=== PATIENT | female | born 1950 | race Caucasian/White ===

== ENCOUNTER 2017-09-26 09:19 | Emergency (ER) | payer OTHER ==
[~2017-09-26] VITALS: Ht 165.1 cm; Wt 117.7 kg
[2017-09-26 09:48] LABS: BASOPHIL (%) 0.9 % (0-1); BASOPHIL COUNT 0.1 K/uL (0-0.1); EOSINOPHIL (%) 3.4 % (0-5); EOSINOPHIL COUNT 0.3 K/uL (0-0.3); HEMATOCRIT 40.6 % (36.0-46.0); HEMOGLOBIN 13.6 G/DL (11.9-15.5); IMMATURE GRANULOCYTE (%) 0.1 % (0.0-0.7); LYMPHOCYTE (%) 30.8 % (15-42); LYMPHOCYTE COUNT 2.5 K/uL (1.0-2.8); MCHC 33.5 G/DL (30.0-36.0); MCV 86.6 FL (83-99); MONOCYTE (%) 9.1 % (3-12); MONOCYTE COUNT 0.7 K/uL (0-0.8); NEUTROPHIL (%) 55.7 % (45-76); NEUTROPHIL COUNT 4.6 K/uL (1.8-6.4); PLATELET COUNT 295 K/uL (156-360); RBC DIS.WIDTH-CV 12.6 % (11.8-14.6); RBC DIS.WIDTH-SD 39.8 % (39-53); RED BLOOD COUNT 4.69 M/uL (3.80-5.20); WHITE BLOOD COUNT 8.2 K/uL (4.1-10.2)
[2017-09-26 09:59] LABS: ALBUMIN 4.2 g/dL (3.2-4.8); CHLORIDE 103 mEq/L (99-109); POTASSIUM 3.8 mEq/L (3.7-5.4); SODIUM 138 mEq/L (136-147)
[2017-09-26 10:02] LABS: GLUCOSE 120 mg/dL (70-99); TOTAL PROTEIN 7.3 g/dL (6.4-8.3)
[2017-09-26 10:04] LABS: TOTAL BILIRUBIN 0.4 mg/dL (0.0-1.0)
[2017-09-26 10:05] LABS: ALKALINE PHOSPHATASE 78 IU/L (3-129); CREATININE 0.7 mg/dL (0.6-1.3); GFR ESTIMATE (CALCULATED) > 59 mL/min/
[2017-09-26 10:06] LABS: PTT 28.8 SEC (25-37); UREA NITROGEN (BUN) 14 mg/dL (9-23)
[2017-09-26 10:07] LABS: AST (GOT) 20 IU/L (2-34)
[2017-09-26 10:08] LABS: ALT (GPT) 14 IU/L (3-49)
[2017-09-26 10:10] LABS: TROP-I INTERPRETATION NEGATIVE; TROPONIN-I < 0.01 ng/mL (0.0-0.30)
[2017-09-26 11:15] LABS: APPEARANCE SL.HAZY ((CLEAR)); BILIRUBIN NEGATIVE; BLOOD NEGATIVE; COLOR YELLOW ((YELLOW)); GLUCOSE (STRIP) NEGATIVE; KETONES 20; LEUKOCYTES NEGATIVE; NITRITE NEGATIVE; PROTEIN (STRIP) NEGATIVE; SPECIFIC GRAVITY 1.024 (1.000-1.030); UROBILINOGEN 0.2 MG/DL (0.2-1.0)
[2017-09-26 11:18] LABS: BACTERIA RARE /HPF; EPITHELIAL CELLS 1+ /HPF; MUCUS TRACE /LPF; UCUL ADDED? NO; WHITE BLOOD CELLS 0-5 /HPF (0-5)
[2017-09-26 13:05] VITALS: BP 113/81
== END 2017-09-26 13:05 | disposition home or self-care (01) ==
LOC: EME 09:19
PROVIDERS: Emergency Medicine
DX: S01.01XA Laceration without foreign body of scalp, initial encounter (principal); W18.30XA Fall on same level, unspecified, initial encounter; Y93.01 Activity, walking, marching and hiking; Y92.538 Other ambulatory health services establishments as the place of occurrence of the external cause; R55 Syncope and collapse; E86.0 Dehydration; Z23 Encounter for immunization; I45.10 Unspecified right bundle-branch block; I44.4 Left anterior fascicular block; R94.31 Abnormal electrocardiogram [ECG] [EKG]; Z95.2 Presence of prosthetic heart valve; Z90.49 Acquired absence of other specified parts of digestive tract
CPT/HCPCS: 70450; 71046; 80053; 81003; 83735; 84484; 85025; 85610; 85730; 93005; 99281; 99285; J7040

== ENCOUNTER 2017-10-05 07:58 | Observation (INO) | payer OTHER ==
[~2017-10-05] VITALS: Ht 166.4 cm; Wt 123.0 kg
[2017-10-05 09:04] LABS: HEMATOCRIT 39.4 % (36.0-46.0); HEMOGLOBIN 13.1 G/DL (11.9-15.5); MCH 28.7 PG (29.0-34.0); MCHC 33.2 G/DL (30.0-36.0); MCV 86.4 FL (83-99); PLATELET COUNT 268 K/uL (156-360); RBC DIS.WIDTH-CV 12.9 % (11.8-14.6); RBC DIS.WIDTH-SD 40.5 % (39-53); RED BLOOD COUNT 4.56 M/uL (3.80-5.20); WHITE BLOOD COUNT 5.6 K/uL (4.1-10.2)
[2017-10-05 09:13] LABS: PTT 29.9 SEC (25-37)
[2017-10-05 09:22] LABS: CHLORIDE 105 mEq/L (99-109); POTASSIUM 3.8 mEq/L (3.7-5.4); SODIUM 138 mEq/L (136-147)
[2017-10-05 09:24] LABS: GLUCOSE 95 mg/dL (70-99)
[2017-10-05 09:27] LABS: CREATININE 0.7 mg/dL (0.6-1.3); GFR ESTIMATE (CALCULATED) > 59 mL/min/
[2017-10-05 09:28] LABS: UREA NITROGEN (BUN) 10 mg/dL (9-23)
[2017-10-05 09:30] LABS: TROP-I INTERPRETATION NEGATIVE; TROPONIN-I < 0.01 ng/mL (0.0-0.30)
[2017-10-05] MEDS ORDERED: ASPIR 8181 M1 PO (09:57)
[2017-10-05] MEDS ORDERED: B-121000 MC2 PO (09:57)
[2017-10-05] MEDS ORDERED: CALTRATE 600 +1 EAC1 PO (09:57)
[2017-10-05] MEDS ORDERED: GUMMI BEAR MUL1 EACH PO (09:58)
[2017-10-05] MEDS ORDERED: VITAMIN D32000 UNI1 PO (09:58)
[2017-10-05 16:12] VITALS: BP 107/62
[2017-10-05 19:39] LABS: TROP-I INTERPRETATION NEGATIVE; TROPONIN-I 0.01 ng/mL (0.0-0.30)
[2017-10-05 19:55] VITALS: BP 122/59
[2017-10-06 00:06] VITALS: BP 111/66
[2017-10-06 01:08] LABS: TROP-I INTERPRETATION NEGATIVE; TROPONIN-I < 0.01 ng/mL (0.0-0.30)
[2017-10-06 04:14] VITALS: BP 123/79
[2017-10-06 08:00] VITALS: BP 116/72
== END 2017-10-06 11:33 | disposition home or self-care (01) ==
LOC: EME 07:58 → 4SOUTH 11:26 → EDOF 11:26 → ENRESERV 11:31 → 4SOUTH 13:43
PROVIDERS: Emergency Medicine; Physician Assistant
DX: R55 Syncope and collapse (principal); Z95.2 Presence of prosthetic heart valve; R94.31 Abnormal electrocardiogram [ECG] [EKG]; I44.4 Left anterior fascicular block; I45.10 Unspecified right bundle-branch block; Z79.82 Long term (current) use of aspirin; Z90.49 Acquired absence of other specified parts of digestive tract; Z90.710 Acquired absence of both cervix and uterus
CPT/HCPCS: 70450; 71045; 80048; 83880; 84484; 85027; 85610; 85730; 93005; 93880; G0378; J1644; J7030

== ENCOUNTER 2017-10-13 17:01 | Inpatient (IN) | payer OTHER ==
[~2017-10-13] VITALS: Ht 165.1 cm; Wt 116.0 kg
[~2017-10-13 17:01] MED LIST: ASPIR 8181 M1 PO; B-121000 MC2 PO; CALTRATE 600 +1 EAC1 PO; GUMMI BEAR MUL1 EACH PO; VITAMIN D32000 UNI1 PO
[2017-10-13 18:07] LABS: BASOPHIL (%) 1.1 % (0-1); BASOPHIL COUNT 0.1 K/uL (0-0.1); EOSINOPHIL (%) 3.2 % (0-5); EOSINOPHIL COUNT 0.2 K/uL (0-0.3); HEMATOCRIT 40.5 % (36.0-46.0); HEMOGLOBIN 13.6 G/DL (11.9-15.5); IMMATURE GRANULOCYTE (%) 0.2 % (0.0-0.7); LYMPHOCYTE (%) 25.5 % (15-42); LYMPHOCYTE COUNT 1.6 K/uL (1.0-2.8); MCH 28.6 PG (29.0-34.0); MCHC 33.6 G/DL (30.0-36.0); MCV 85.3 FL (83-99); MONOCYTE (%) 11.4 % (3-12); MONOCYTE COUNT 0.7 K/uL (0-0.8); NEUTROPHIL (%) 58.6 % (45-76); NEUTROPHIL COUNT 3.7 K/uL (1.8-6.4); PLATELET COUNT 240 K/uL (156-360); RBC DIS.WIDTH-CV 12.9 % (11.8-14.6); RBC DIS.WIDTH-SD 40.2 % (39-53); RED BLOOD COUNT 4.75 M/uL (3.80-5.20); WHITE BLOOD COUNT 6.2 K/uL (4.1-10.2)
[2017-10-13 18:18] LABS: ALBUMIN 4.1 g/dL (3.2-4.8); CHLORIDE 108 mEq/L (99-109); POTASSIUM 3.8 mEq/L (3.7-5.4); SODIUM 142 mEq/L (136-147)
[2017-10-13 18:19] LABS: MAGNESIUM 2.1 mg/dL (1.3-2.7)
[2017-10-13 18:21] LABS: GLUCOSE 106 mg/dL (70-99); TOTAL PROTEIN 6.6 g/dL (6.4-8.3)
[2017-10-13 18:23] LABS: TOTAL BILIRUBIN 0.4 mg/dL (0.0-1.0)
[2017-10-13 18:24] LABS: ALKALINE PHOSPHATASE 70 IU/L (3-129)
[2017-10-13 18:25] LABS: CREATININE 0.7 mg/dL (0.6-1.3); GFR ESTIMATE (CALCULATED) > 59 mL/min/
[2017-10-13 18:26] LABS: AST (GOT) 20 IU/L (2-34); UREA NITROGEN (BUN) 10 mg/dL (9-23)
[2017-10-13 18:27] LABS: ALT (GPT) 16 IU/L (3-49); TROP-I INTERPRETATION NEGATIVE; TROPONIN-I < 0.01 ng/mL (0.0-0.30)
[2017-10-13 23:27] VITALS: BP 119/84
[2017-10-14] VITALS (22 sets, daily range): BP systolic 100–152; BP diastolic 73–104
[2017-10-14 01:50] LABS: TROP-I INTERPRETATION NEGATIVE; TROPONIN-I < 0.01 ng/mL (0.0-0.30)
[2017-10-14 06:40] LABS: HEMATOCRIT 39.9 % (36.0-46.0); HEMOGLOBIN 12.9 G/DL (11.9-15.5); MCH 28.4 PG (29.0-34.0); MCHC 32.3 G/DL (30.0-36.0); MCV 87.7 FL (83-99); PLATELET COUNT 230 K/uL (156-360); RBC DIS.WIDTH-CV 13.1 % (11.8-14.6); RED BLOOD COUNT 4.55 M/uL (3.80-5.20); WHITE BLOOD COUNT 5.4 K/uL (4.1-10.2)
[2017-10-14 06:59] LABS: TROP-I INTERPRETATION NEGATIVE; TROPONIN-I < 0.01 ng/mL (0.0-0.30)
[2017-10-14 07:00] LABS: CHLORIDE 107 MEQ/L (99-109); CREATININE 0.7 MG/DL (0.6-1.3); GFR ESTIMATE (CALCULATED) > 59 mL/min/; GLUCOSE 123 mg/dL (70-99); POTASSIUM 3.8 MEQ/L (3.7-5.4); SODIUM 140 MEQ/L (136-147); UREA NITROGEN (BUN) 8 mg/dL (9-23)
[2017-10-15] VITALS (24 sets, daily range): BP systolic 107–148; BP diastolic 68–102
[2017-10-16] VITALS (13 sets, daily range): BP systolic 94–146; BP diastolic 63–93
[2017-10-16 05:04] LABS: BASOPHIL (%) 0.7 % (0-1); EOSINOPHIL (%) 4.6 % (0-5); EOSINOPHIL COUNT 0.3 K/uL (0-0.3); HEMATOCRIT 41.5 % (36.0-46.0); HEMOGLOBIN 13.6 G/DL (11.9-15.5); IMMATURE GRANULOCYTE (%) 0.2 % (0.0-0.7); LYMPHOCYTE (%) 27.7 % (15-42); LYMPHOCYTE COUNT 1.7 K/uL (1.0-2.8); MCH 28.2 PG (29.0-34.0); MCHC 32.8 G/DL (30.0-36.0); MCV 85.9 FL (83-99); MONOCYTE (%) 11.2 % (3-12); MONOCYTE COUNT 0.7 K/uL (0-0.8); NEUTROPHIL (%) 55.6 % (45-76); NEUTROPHIL COUNT 3.4 K/uL (1.8-6.4); PLATELET COUNT 223 K/uL (156-360); RBC DIS.WIDTH-CV 13.1 % (11.8-14.6); RBC DIS.WIDTH-SD 40.7 % (39-53); RED BLOOD COUNT 4.83 M/uL (3.80-5.20); WHITE BLOOD COUNT 6.1 K/uL (4.1-10.2)
[2017-10-16 05:07] LABS: INTER. NORMALIZED RATIO 1.1
[2017-10-16 05:10] LABS: PTT 32.1 SEC (25-37)
[2017-10-16 05:59] LABS: ALKALINE PHOSPHATASE 70 IU/L (3-129); ALT (GPT) 13 IU/L (3-49); AST (GOT) 14 IU/L (2-34); CHLORIDE 105 MEQ/L (99-109); CREATININE 0.6 MG/DL (0.6-1.3); GFR ESTIMATE (CALCULATED) > 59 mL/min/; GLUCOSE 104 mg/dL (70-99); PHOSPHORUS 3.7 mg/dL (2.5-4.9); POTASSIUM 3.7 MEQ/L (3.7-5.4); SODIUM 141 MEQ/L (136-147); TOTAL BILIRUBIN 0.6 MG/DL (0.0-1.0); TOTAL PROTEIN 6.1 G/DL (6.4-8.3); UREA NITROGEN (BUN) 6 mg/dL (9-23)
[2017-10-17] VITALS (7 sets, daily range): BP systolic 101–134; BP diastolic 55–79
[2017-10-18 03:34] VITALS: BP 118/67
[2017-10-18 08:01] VITALS: BP 111/62
[2017-10-18] MEDS ORDERED: LOPRESSOR25 MG PO (10:58)
== END 2017-10-18 12:19 | disposition home or self-care (01) | DRG 243 ==
LOC: EME 17:01 → EDOF 21:07 → 4WEST 21:07 → 4EAST 21:07 → ENRESERV 21:18 → 4EAST 22:36 → ENRESERV 10-14 12:13 → 4WEST 10-14 12:30 → ENRESERV 10-16 08:37 → 4EAST 10-16 11:57 → ENPENDDIS 10-18 → 4EAST 10-18 12:19
PROVIDERS: Emergency Medicine; Hospitalist; Internal Medicine
DX: I49.5 Sick sinus syndrome (principal); I44.2 Atrioventricular block, complete; I45.2 Bifascicular block; Z68.41 Body mass index [BMI] 40.0-44.9, adult; E11.9 Type 2 diabetes mellitus without complications; E66.01 Morbid (severe) obesity due to excess calories; E78.5 Hyperlipidemia, unspecified; I10 Essential (primary) hypertension; I25.10 Atherosclerotic heart disease of native coronary artery without angina pectoris; Z90.710 Acquired absence of both cervix and uterus; Z95.3 Presence of xenogenic heart valve; Z90.49 Acquired absence of other specified parts of digestive tract; Z80.1 Family history of malignant neoplasm of trachea, bronchus and lung; Z82.49 Family history of ischemic heart disease and other diseases of the circulatory system; Z82.0 Family history of epilepsy and other diseases of the nervous system; Z80.41 Family history of malignant neoplasm of ovary; Z82.5 Family history of asthma and other chronic lower respiratory diseases; Z80.0 Family history of malignant neoplasm of digestive organs
CPT/HCPCS: 71045; 71046; 80048; 80053; 83735; 84100; 84484; 85025; 85027; 85610; 85730; 87641; 93005; 93306; 99281; 99285; A6214; C1753; C1785; C1892; C1894; C1898; J0690; J1200; J1650; J2250; J3010; S0020